=== PATIENT | male | born 1935 | race Caucasian/White ===

== ENCOUNTER 2017-04-12 09:33 | Outpatient (CLI) | payer MEDICARE ==
[~2017-04-12 09:33] MED LIST: Iopamidol 370 76% 100 ML VIAL ONE
--- NOTE | 2017-04-12 12:18 | CT ---
CT ABDOMEN AND PELVIS WITH AND WITHOUT IV CONTRAST: Date: 04/12/17 HISTORY: Metastatic renal carcinoma to the pancreas. CORRELATION: MRI abdomen of 01/11/17. FINDINGS: There are dependent changes in the left lung base. A gallstone is again seen. There has been interva l placement of a biliary stent in the common bile duct with air in the intra and extrahepatic biliar y ducts. No hepatic mass is noted. The enhancing masses in the pancreas noted on the previous study are stable, measuring 2.7 cm in the posterior aspect of the head of the pancreas, and 3.0 cm in the body-tail of the pancreas. The spleen and left adrenal gland appear normal. Multiple cysts are seen in the left kidney. The pat ient is status post right nephrectomy. No free air, free fluid, or lymphadenopathy seen in the abdomen or pelvis. The small bowel loops are not abnormally dilated. There is colonic diverticulosis without diverticulitis. There is a 3.0 cm m ass in the posterior aspect of the urinary bladder. There are vascular calcifications without evidence of aneurysmal dilatation of the abdominal aorta. Degenerative changes are present in the spine. No osteolytic lesions are seen. IMPRESSION: 1. Stable pancreatic masses since 01/11/17. 2. Cholelithiasis. 3. Left renal cysts. 4. Status post right nephrectomy. 5. Colonic diverticulosis. 6. Urinary bladder mass. Further evaluation with cystoscopy is recommended. POS: [facility]
== END 2017-04-12 09:34 | disposition home or self-care (01) ==
LOC: SCSCT 09:33
PROVIDERS: ATTEND Internal Medicine Hematology & Oncology
DX: C64.1 Malignant neoplasm of right kidney, except renal pelvis (principal); K80.20 Calculus of gallbladder without cholecystitis without obstruction; K57.30 Diverticulosis of large intestine without perforation or abscess without bleeding; N28.1 Cyst of kidney, acquired; K86.89 Other specified diseases of pancreas; Z90.5 Acquired absence of kidney
CPT/HCPCS: 74178

== ENCOUNTER 2017-07-19 10:51 | Outpatient (CLI) | payer MEDICARE ==
--- NOTE | 2017-07-19 13:44 | CT ---
CT ABDOMEN AND PELVIS WITH IV AND ORAL CONTRAST: History: Pancreatic masses. Renal cell carcinoma. Comparison: 04-12-17 FINDINGS: On the superior most image, a 0.7 cm noncalcified nodule abuts the posterior surface of the major fis sure on the right, in the right lower lobe. Gas containing stones in the gallbladder are again demonstrated. Biliary stent and pneumobilia are si milar in appearance to the prior study. The masses involving the pancreas are less conspicuous on the current study due to different timing o f IV contrast bolus. The 2.7 cm pancreatic head mass and 3.0 cm pancreatic body mass are not signific antly changed in size. Cysts arising from the cortex of the left kidney are again demonstrated the ri ght kidney is surgically absent. Diverticula arise from the colon without adjacent inflammation. Ther e is dystrophic calcification in the prostate gland. Defect at the bladder base is favored to represe nt an enlarged prostate gland. There is calcification in the arterial structures. IMPRESSION: 1. Stable CT appearance of the pancreatic masses. Post-operative changes are also stable. 2. Noncalcified right lower lobe nodule, 0.7 cm diameter, is now visualized. This area of the right l ower lobe was not included on the previous study. Please consider CT of the chest for complete evalua tion. POS: [facility]
== END 2017-07-19 10:52 | disposition home or self-care (01) ==
LOC: SCSCT 10:51
PROVIDERS: ATTEND Internal Medicine Hematology & Oncology
DX: C64.1 Malignant neoplasm of right kidney, except renal pelvis (principal); R91.1 Solitary pulmonary nodule; Z98.890 Other specified postprocedural states
CPT/HCPCS: 74178; 74410

== ENCOUNTER 2018-01-24 08:25 | Outpatient (CLI) | payer MEDICARE ==
[2018-01-24] MEDS ORDERED: Iopamidol 370 76% 100 ML VIAL ONE (09:00)
--- NOTE | 2018-01-24 13:26 | CT ---
CT OF ABDOMEN AND PELVIS WITH CONTRAST: Comparison: 07-19-17, 04-12-17 FINDINGS: Slightly hyperdense, by post contrast imaging, mass situated at the posterior aspect of the head of t he pancreas is redemonstrated approximately 2.6 cm in transverse diameter, stable. Adjacent pancreati c stent remains in place. Stent approximates the common duct with re-demonstration of pneumobilia. He terogeneous, approximately 3 cm in dimension mass, at the distal pancreatic body is grossly stable. H yperdense gallstones remains at the gallbladder neck. Right nephrectomy post-operative change is agai n demonstrated. Re-demonstration of multiple left renal cysts and small hypodensities that are too sm all to further characterize. Stable nodularity of the left adrenal gland. Scattered atelectasis and/o r scarring present at the lung bases. There is diffuse osseous degenerative change of the skeletal st ructures. No new adenopathy. There is enlargement of the prostate gland with internal calcification, abutting the base of the urinary bladder, grossly stable. Colonic diverticulosis is seen. There is no abnormal dilatation of the small bowel. Exam is otherwise grossly stable. IMPRESSION: 1. Grossly stable masses of the pancreatic head and distal body. 2. Cholelithiasis remains. POS: [facility]
== END 2018-01-24 08:26 | disposition home or self-care (01) ==
LOC: SCSCT 08:25
PROVIDERS: ATTEND Internal Medicine Hematology & Oncology
DX: K86.9 Disease of pancreas, unspecified (principal); K80.20 Calculus of gallbladder without cholecystitis without obstruction
CPT/HCPCS: 74177; 82565

== ENCOUNTER 2018-05-10 21:50 | Emergency (ER) | payer MEDICARE ==
[2018-05-10 22:35] LABS: #Basophils 0.1 thou/uL (0.0-0.2); #Eosinphils 0.1 thou/uL (0.0-0.7); #Lymphocytes 1.2 thou/uL (1.20-3.40); %Basophils 0.4 % (0.0-1.0); %Eosinophils 0.4 % (0.0-10.0); %Lymphocytes 8.8 % (21.0-51.0); %Monocytes 7.2 % (0.0-10.0); %Neutrophils 83.2 % (42.0-75.0); Hemoglobin 14.3 g/dL (14.0-18.0); Mean Corpuscular HGB CONC 32.8 g/dL (32.0-36.0); Mean Corpuscular Hemoglobin 31.4 pg (27.0-31.0); Mean Corpuscular Volume 95.7 fL (78.0-98.0); Mean Platelet Volume 6.8 fL (7.4-10.4); Platelet Count 233 thou/uL (130-400); RBC Distribution Width 12.9 % (11.5-14.5); Red Blood Cell (RBC) Count 4.57 mill/uL (4.70-6.10); White Blood Cell (WBC) Count 13.2 thou/uL (4.8-10.8)
[2018-05-10 22:54] LABS: ALT (SGPT) 247 U/L (8-55); AST (SGOT) 144 U/L (5-34); Albumin 3.8 g/dL (3.4-4.8); Alkaline Phosphatase 415 U/L (40-150); Anion Gap 11 mmol/L (10-20); BUN (Urea Nitrogen) 19 mg/dL (8.4-25.7); Bilirubin, Total 2.6 mg/dL (0.2-1.2); CK (CPK) 59 U/L (30-200); Calc. Creatinine Clearance 0 mL/min (70-130); Calcium 9.3 mg/dL (7.8-10.44); Carbon Dioxide 26 mmol/L (23-31); Chloride 105 mmol/L (98-107); Estimated GFR-MDRD 55; Globulin 2.9 g/dL (2.4-3.5); Glucose 112 mg/dL (83-110); Protein, Total 6.7 g/dL (5.8-8.1); Sodium 138 mmol/L (136-145)
[2018-05-10 22:57] LABS: CKMB 1.6 ng/mL (0-6.6); Troponin I Less than 0.010 ng/mL (< 0.028)
[2018-05-10 23:08] LABS: Bilirubin Small (Negative); Blood, Urine Negative (Negative); Clarity CLEAR (Clear); Glucose, Urine (Dipstick) Negative (Negative); Leukocyte Small (Negative); Nitrite Negative (Negative); Protein, Urine (Dipstick) 30 mg/dL (Neg-Trace); Specific Gravity, Urine 1.017 (1.002-1.036)
[2018-05-10 23:10] LABS: Bacteria/HPF None Seen HPF (None Seen); Hyaline Casts/LPF 0-3 HYALINE CAST LPF (0-3 Hyaline); RBC/HPF 0-3 HPF (0-3); Squamous Epithelial None Seen HPF (0-3); WBC/HPF 0-3 HPF (0-3)
== END 2018-05-10 23:52 | disposition home or self-care (01) ==
LOC: ERS 21:50
DX: E86.0 Dehydration (principal); I10 Essential (primary) hypertension; E78.5 Hyperlipidemia, unspecified; Z79.899 Other long term (current) drug therapy
CPT/HCPCS: 36415; 81003; 81015; 82550; 82553; 83605; 83880; 84484; 87040; 87086; 96360

== ENCOUNTER 2018-09-14 15:41 | Observation (INO) | payer MEDICARE ==
[~2018-09-14 15:41] MED LIST changes: +ISOVUE-370 76%-LOCM 1 ML ONE; -Iopamidol 370 76% 100 ML VIAL ONE
[2018-09-14 16:26] LABS: #Eosinphils 0.2 thou/uL (0.0-0.7); #Lymphocytes 1.3 thou/uL (1.20-3.40); #Monocytes 0.7 thou/uL (0.11-0.59); #Neutrophils 9.1 thou/uL (1.40-6.50); %Basophils 0.4 % (0.0-1.0); %Eosinophils 1.6 % (0.0-10.0); %Lymphocytes 11.7 % (21.0-51.0); %Monocytes 5.8 % (0.0-10.0); %Neutrophils 80.5 % (42.0-75.0); Hemoglobin 12.9 g/dL (14.0-18.0); Mean Corpuscular HGB CONC 32.7 g/dL (32.0-36.0); Mean Corpuscular Hemoglobin 30.7 pg (27.0-31.0); Mean Corpuscular Volume 93.9 fL (78.0-98.0); Mean Platelet Volume 7.7 fL (7.4-10.4); Platelet Count 230 thou/uL (130-400); RBC Distribution Width 13.3 % (11.5-14.5); Red Blood Cell (RBC) Count 4.21 mill/uL (4.70-6.10); White Blood Cell (WBC) Count 11.3 thou/uL (4.8-10.8)
[2018-09-14 16:44] LABS: ALT (SGPT) 141 U/L (8-55); AST (SGOT) 68 U/L (5-34); Albumin 3.3 g/dL (3.4-4.8); Alkaline Phosphatase 591 U/L (40-150); Anion Gap 14 mmol/L (10-20); BUN (Urea Nitrogen) 25 mg/dL (8.4-25.7); Bilirubin, Total 6.5 mg/dL (0.2-1.2); Calc. Creatinine Clearance 0 mL/min (70-130); Carbon Dioxide 23 mmol/L (23-31); Chloride 105 mmol/L (98-107); Estimated GFR-MDRD 62; Globulin 3.2 g/dL (2.4-3.5); Glucose 192 mg/dL (83-110); Potassium 3.6 mmol/L (3.5-5.1); Protein, Total 6.5 g/dL (5.8-8.1); Sodium 138 mmol/L (136-145)
[2018-09-14] MEDS ORDERED: Ondansetron PF 4 MG/2 ML Vial ONE (16:50)
[2018-09-14 18:32] LABS: Bilirubin, Direct 5.2 mg/dL (0.1-0.3); Bilirubin, Total 6.7 mg/dL (0.2-1.2)
--- NOTE | 2018-09-14 19:14 | CT ---
CT ABDOMEN AND PELVIS WITH IV CONTRAST 09/14/18 HISTORY: Abdominal pain. Pancreatic cancer. Elevated bilirubin. COMPARISON: 08/14/18. FINDINGS: The visualized lung bases are clear. Gallstone is again demonstrated. Gallbladder is more distended, as are the biliary ducts and common bile duct which now measures up to 2.0 cm diameter just above the level of the stent that is unchanged in position, the lower margin extending to the level of the amp jonathon of Vater. Hyperdense masses of the pancreas are unchanged in appearance. Right kidney is surgica lly absent. Left renal cysts are unchanged. Calcification throughout the arterial structures. Bilater al parts defects at the lumbosacral junction are apparent. Urinary bladder is unremarkable. IMPRESSION: Biliary obstruction. Evidence of shunt malfunction. It is not clear if the shunt is obstructed or has migrated into the biliary system, so that the distal tip, at the level of ampulla of Vater, is no lo nger patent. Pancreatic masses and other findings are otherwise stable. POS: [facility]
--- NOTE | 2018-09-14 20:41 | PDOC.FM ---
- Objective Result Diagrams: 09/14/18 16:11 09/14/18 16:11
--- NOTE | 2018-09-14 20:47 | PDOC.FPRHP ---
- History of Present Illness History of Present Illness: 83yo M with pmh of Metastatic kidney cancer to the pancreas (not on chemo or radiation). Pt reports several month hx of increasing pruritis on back. His daughter noticed he was becoming jaundiced and brought him to ED at [facility]. There he had bilirubin checked which was elevated. On presentation here abdominal CT which shows CBD stent is migrated and not functioning correctly with CBD dilation to 2cm. Pt denies any abdominal pain, no fever/chills, no nausea/vomiting, no constipation/diarrhea, no upper or lower GIB. ED Course: zofran, 1L NS - Allergies/Adverse Reactions Allergies Allergy/AdvReac Type Severity Reaction Status Date / Time [id number]-Yjb-Dzk Reductase Allergy Hives Verified 02/03/17 10:47 Inhibitor - Home Medications Medication Instructions Recorded Confirmed Type Aspirin [Aspir-Low] 81 mg PO DAILY 02/03/17 09/14/18 History NIFEdipine [Nifedipine ER] 30 mg PO BID 02/03/17 09/14/18 History Acetaminophen [Tylenol Arthritis] 650 mg PO DAILY MDD ARTHRITIS PAIN 09/14/18 History - History PMHx: Metastatic kidney cancer to the pancreas, HTN, BPH, OA, CAD s/p stents and CABG PSHx: nephrectomy, CABG FHx: none Social: denies t/a/d allergy: statins- anaphylaxis CODE: full - Review of Systems General: reports: other (itching). denies: fever/chills, fatigue Eyes: denies: eye pain, vision changes ENT: denies: nasal congestion, rhinorrhea Respiratory: denies: cough, congestion, shortness of breath Cardiovascular: denies: chest pain, palpitation Gastrointestinal: denies: nausea, vomiting Skin: reports: jaundice, itching. denies: rashes Musculoskeletal: denies: pain, tenderness Neurological: denies: syncope, seizure Psychological: denies: anxiety, depression - Vital signs BP: 136/77, Pulse: 76, Resp: 18, Temp: 98.0 (Oral), Pain: 0, O2 sat: 97 on Room Air, Time: 09/14/2018 19:04. weight 83kg - Physical Exam Constitutional: NAD, awake, alert and oriented HEENT: EOMI, grossly normal vision, grossly normal hearing Neck: supple, trachea midline Chest: no-tender to palpation, no lesions Heart: RRR, normal S1/S2 Lungs: CTAB, no respiratory distress Abdomen: soft, non-tender Musculoskeletal: normal structure, normal tone Neurological: no focal deficit, normal sensation Skin: no rash/lesions, good turgor Heme/Lymphatic: no unusual bruising or bleeding, no purpura Psychiatric: normal mood and affect, intact recent and remote memory FMR H&P: Results - Labs Result Diagrams: 09/14/18 16:11 09/14/18 16:11 Lab results: WBC 11.3 thou/uL (4.8-10.8) H 09/14/18 16:11 Hgb 12.9 g/dL (14.0-18.0) L 09/14/18 16:11 Hct 39.6 % (42.0-52.0) L 09/14/18 16:11 MCV 93.9 fL (78.0-98.0) 09/14/18 16:11 Plt Count 230 thou/uL (130-400) 09/14/18 16:11 Neutrophils % 80.5 % (42.0-75.0) H 09/14/18 16:11 Sodium 138 mmol/L (136-145) 09/14/18 16:11 Potassium 3.6 mmol/L (3.5-5.1) 09/14/18 16:11 Chloride 105 mmol/L (98-107) 09/14/18 16:11 Carbon Dioxide 23 mmol/L (23-31) 09/14/18 16:11 BUN 25 mg/dL (8.4-25.7) 09/14/18 16:11 Creatinine 1.13 mg/dL (0.7-1.3) 09/14/18 16:11 Glucose 192 mg/dL (83-110) H 09/14/18 16:11 Calcium 9.0 mg/dL (7.8-10.44) 09/14/18 16:11 Total Bilirubin 6.7 mg/dL (0.2-1.2) H 09/14/18 16:11 AST 68 U/L (5-34) H 09/14/18 16:11 ALT 141 U/L (8-55) H 09/14/18 16:11 Alkaline Phosphatase 591 U/L (40-150) H 09/14/18 16:11 Serum Total Protein 6.5 g/dL (5.8-8.1) 09/14/18 16:11 Albumin 3.3 g/dL (3.4-4.8) L 09/14/18 16:11 Lipase 25 U/L (8-78) 09/14/18 16:11 FMR H&P: A/P - Problem List (1) Hyperbilirubinemia Current Visit: Yes Status: Acute Code(s): E80.6 - OTHER DISORDERS OF BILIRUBIN METABOLISM (2) Renal cancer Current Visit: Yes Status: Acute (3) BPH (benign prostatic hyperplasia) Current Visit: Yes Status: Acute Code(s): N40.0 - BENIGN PROSTATIC HYPERPLASIA WITHOUT LOWER URINRY TRACT SYMP (4) HTN (hypertension) Current Visit: Yes Status: Acute Code(s): I10 - ESSENTIAL (PRIMARY) HYPERTENSION (5) CAD (coronary artery disease) Current Visit: Yes Status: Acute Code(s): I25.10 - ATHSCL HEART DISEASE OF [place] CORONARY ARTERY W/O ANG PCTRS - Plan Hyperbilirubinemia 2/2 CBD obstruction from pancreatic mass A- CT imaging shows evidence for migration of CBD stent with probable dysfunction. GI consulted from ER with recommendations for admission- recommendations much appreciated. No s/s of cholangitis or cholecystitis P- admit to medicine - f/u GI recs in morning - NPO after midnight for probable procedure in AM HTN - continue home nifedipine BPH - continue home tamsulosin CAD - pt denies being on any medications but is questionable historian. Confirm home meds with family in AM recommended. CODE: FULL FMR H&P: Upper Level - Pertinent history Jhony Salinas is a 83 year old male with history of metastatic renal cell carcinomal who presented to the ED with worsening pruritus and jaundice. GI was consulted from ED who recommended admission for stent revision. Pt otherwise asymptomatic, denies fever, abdominal pain, nausea, vomiting. - Pertinent findings Vitals wnl. Exam: General: alert and oriented x 3 in no distress. Heart: Regular rate and rhythm, no murmurs, rubs, or gallops. Lungs: clear to auscultation bilaterally. Abdomen: soft, non-tender; no distention or organomegaly/masses felt on palpation. Skin: jaundice noted. CT: significant for stent malfunction. - Plan Date/Time: 09/14/182043 I, Frances Howard, have evaluated this patient and agree with findings/plan as outlined by international freight forwarder resident. Pertinent changes/additions are listed here. Hyperbilirubinemia secondary - will admit to medical obs - no s/s of cholangitis - will admit for likely procedure in AM per GI recs. Regarding pt's chronic medical problems, will resume home medications as described above. diet: NPO after midnight. DVT proph: lovenox. Addendum - Attending - Attending Attestation Date/Time: 09/14/182343 I personally evaluated the patient and discussed the management with Dr. Mckenzie /Lee. I agree with the History, Examination, Assessment and Plan documented above with any addition or exceptions noted below. Patient with history of RCC with mets to pancreas here with pruritus and increased jaundice. He otherwise denies symptoms. Labs show transaminitis and TBili to >6. CT scan shows failure of the common bile duct stent that is likely leading to his increased Tbili level and subsequent itching. He will be admitted overnight, consult GI in AM to evaluate for other therapies such as ERCP or percutaneous drainage. Continue chronic home meds overnight. Dispo pending GI recs and interventions.
[2018-09-14] MEDS ORDERED: Acetaminophen 325 MG TAB PO PRN ×2 (22:07→22:40)
[2018-09-14] MEDS ORDERED: Ondansetron ODT 4 MG TAB SL PRN (22:07)
[2018-09-14] MEDS ORDERED: Ondansetron PF 4 MG/2 ML Vial IVP PRN ×2 (22:07→22:40)
[2018-09-14] MEDS ORDERED: Sodium Chloride 0.9% 1,000 ML IV SCH (22:15)
[2018-09-14 22:16] VITALS: BMI 29.7
[2018-09-14] MEDS ORDERED: Ondansetron ODT 4 MG TAB PO PRN (22:40)
[2018-09-14] MEDS ORDERED: Calcium Carbonate 500 MG ChewTAB PO PRN (22:40)
[2018-09-14] MEDS: hydrOXYzine 10 MG TAB PO PRN (23:01)
--- NOTE | 2018-09-15 08:08 | PDOC.FM ---
- Subjective Subjective: Pt states that he slept some over night but continues to itch. He denies chest pain, SOB, abdominal pain, nausea, vomiting, or diarrhea. He states he has had an ERCP before and just hopes they put in a bigger stent. - Objective MAR Reviewed: Yes Vital Signs & Weight: Vital Signs (12 hours) Temp Pulse Resp BP Pulse Ox 09/15/18 07:40 98.6 F 84 14 174/84 H 95 09/15/18 03:48 98.5 F 84 20 172/88 H 96 09/14/18 23:09 98.9 F 78 21 H 134/72 94 L 09/14/18 22:00 97.5 F L 79 28 H 159/76 H 97 Weight Weight 83.506 kg I&O: 09/14/18 09/15/18 09/16/18 06:59 06:59 06:59 Intake Total 1354 Output Total 875 Balance 479 Result Diagrams: 09/15/18 08:30 09/15/18 08:30 Phys Exam - Physical Examination Constitutional: NAD HEENT: moist MMs Neck: supple, full ROM Respiratory: no wheezing, no rales, clear to auscultation bilateral Cardiovascular: RRR, no significant murmur Gastrointestinal: soft, non-tender, no distention, positive bowel sounds Musculoskeletal: pulses present, edema present (1+ pitting edema to knee) Neurological: normal sensation, moves all 4 limbs Psychiatric: normal affect, A&O x 3 Skin: cap refill <2 seconds Deviation from normal: Evident jaundice, more pronounced in natural light Dx/Plan (1) BPH (benign prostatic hyperplasia) Code(s): N40.0 - BENIGN PROSTATIC HYPERPLASIA WITHOUT LOWER URINRY TRACT SYMP Status: Acute (2) CAD (coronary artery disease) Code(s): I25.10 - ATHSCL HEART DISEASE OF [place] CORONARY ARTERY W/O ANG PCTRS Status: Acute (3) HTN (hypertension) Code(s): I10 - ESSENTIAL (PRIMARY) HYPERTENSION Status: Acute (4) Hyperbilirubinemia Code(s): E80.6 - OTHER DISORDERS OF BILIRUBIN METABOLISM Status: Acute (5) Renal cancer Status: Acute - Plan Plan: This is an 83 yo male with a pmh of metastatic renal cell carcinoma, HTN, BPH, CAD Hyperbilirubinemia 2/2 CBD obstruction from pancreatic mass -CT shows migration of stent and CBD dilation of 2cm -Dr. Walker consulted, likely ERCP this morning for stent placement -NPO for above -Pt likely discharged following procedure HTN -Continue home meds BPH -Continue home meds CAD w/ hx of triple bypass -Denies current medications -Likely has some degree of heart failure Addendum - Attending - Attending Attestation Date/Time: 09/15/18 [id number] I personally evaluated the patient and discussed the management with Dr. Pierre I agree with the History, Examination, Assessment and Plan documented above with any addition or exceptions noted below. Discussed care plan with patient and Daughter patient followed per Oncology ( Tho) and GI(Delmar) will consult GI for further rec regard CBD obstructiive jaundice consider prophylatic ABX if felt needed per GI. Atarax for pruritis verse colestid etc
[2018-09-15 08:54] LABS: #Eosinphils 0.4 thou/uL (0.0-0.7); #Lymphocytes 1.2 thou/uL (1.20-3.40); #Monocytes 0.8 thou/uL (0.11-0.59); #Neutrophils 8.9 thou/uL (1.40-6.50); %Basophils 0.4 % (0.0-1.0); %Eosinophils 3.4 % (0.0-10.0); %Lymphocytes 10.6 % (21.0-51.0); %Monocytes 7.1 % (0.0-10.0); %Neutrophils 78.5 % (42.0-75.0); Hemoglobin 12.9 g/dL (14.0-18.0); Mean Corpuscular HGB CONC 32.2 g/dL (32.0-36.0); Mean Corpuscular Hemoglobin 30.4 pg (27.0-31.0); Mean Corpuscular Volume 94.5 fL (78.0-98.0); Mean Platelet Volume 7.7 fL (7.4-10.4); Platelet Count 222 thou/uL (130-400); RBC Distribution Width 13.4 % (11.5-14.5); Red Blood Cell (RBC) Count 4.25 mill/uL (4.70-6.10); White Blood Cell (WBC) Count 11.4 thou/uL (4.8-10.8)
[2018-09-15] MEDS ORDERED: Enoxaparin Sodium 40 MG/0.4 ML SYRINGE SC SCH (09:00)
[2018-09-15 09:18] LABS: ALT (SGPT) 118 U/L (8-55); AST (SGOT) 57 U/L (5-34); Albumin 3.2 g/dL (3.4-4.8); Alkaline Phosphatase 560 U/L (40-150); Anion Gap 12 mmol/L (10-20); BUN (Urea Nitrogen) 15 mg/dL (8.4-25.7); Calc. Creatinine Clearance 75 mL/min (70-130); Calcium 8.4 mg/dL (7.8-10.44); Carbon Dioxide 23 mmol/L (23-31); Chloride 108 mmol/L (98-107); Estimated GFR-MDRD 84; Glucose 87 mg/dL (83-110); Potassium 3.8 mmol/L (3.5-5.1); Protein, Total 6.2 g/dL (5.8-8.1); Sodium 139 mmol/L (136-145)
[2018-09-15] MEDS: hydrOXYzine 10 MG TAB PO PRN (09:34)
[2018-09-15] MEDS: Tamsulosin HCl 0.4 MG CAP PO SCH (09:34)
[2018-09-15] MEDS: NIFEdipine XL 60 MG TAB PO SCH ×2 (09:35→21:24)
[2018-09-15] MEDS ORDERED: Dexamethasone 20 MG/5 ML VIAL ONE (10:13)
[2018-09-15] MEDS ORDERED: ePHEDrine 50 MG/ML VIAL ONE (10:13)
[2018-09-15] MEDS ORDERED: PHENYLEPHRINE-NS 100 MCG/ML 10 ML SYRINGE ONE (10:13)
[2018-09-15] MEDS ORDERED: Glycopyrrolate 0.2 MG/ML 5 ML SYRINGE ONE (10:13)
[2018-09-15] MEDS ORDERED: PROPOFOL 200 MG/20 ML VIAL ONE (10:13)
[2018-09-15] MEDS ORDERED: Rocuronium Bromide 10 MG/ML (10ML VIAL) ONE (10:13)
[2018-09-15] MEDS ORDERED: Ondansetron PF 4 MG/2 ML Vial ONE (10:13)
[2018-09-15] MEDS ORDERED: Indomethacin 50 MG SUPP PR ONE (11:00)
[2018-09-15] MEDS ORDERED: Indomethacin 50 MG SUPP ONE (12:36)
[2018-09-15] MEDS ORDERED: Iothalamate Meglumine 60% 50 ML VIAL FS ONE (12:36)
[2018-09-15] MEDS ORDERED: Fentanyl 100 MCG/2 ML VIAL ONE (12:50)
--- NOTE | 2018-09-15 14:17 | CON ---
DATE OF CONSULTATION: 09/15/2018 REASON FOR CONSULTATION: Biliary obstruction. CONSULTING PHYSICIAN: Dr. Aleksandr Bowling. HISTORY OF PRESENT ILLNESS: The patient is an 83-year-old male with past medical history of hypertension, BPH, osteoarthritis, coronary artery disease, status post percutaneous coronary intervention stent placement and coronary artery bypass graft as well as renal cell carcinoma with metastatic disease to the pancreas requiring the placement of biliary stent in 2017 secondary to obstruction, presenting with complaints of pruritus. Per chart review, the patient has a history of renal cell carcinoma with metastatic disease in the pancreas that ultimately ended in obstruction of the biliary tree that was relieved with placing a 10 mm x 6 cm Wallstent within the biliary system in order to relieve the obstruction in January of 2017. He states that he did well over the next 3 to 6 months; however, over the last 6 to 12 months, he began to experience intermittent episodes of systemic itching, located primarily on his torso/trunk and lower abdomen, but occasionally on the upper and lower extremities. This would occur approximately 1 to 2 times or every 1 to 2 weeks; however, this has progressively been getting worse over the last 6 months and has progressed to the point, where he is now having daily symptoms of itching within the last month itself. This is characterized like again primarily as intense itching on his chest, back, and abdomen with some milder symptoms in the upper and lower extremities. With this increased itching, he was noted to have the appearance of jaundice, which was discovered by the patient's daughter (not described by the patient himself), but otherwise has no other complaints. He currently denies any nausea, vomiting, fevers, chills, abdominal pain, GI bleeding, change in his bowel habits, dysphagia, odynophagia, or weight loss with admission to the [facility] ER for further evaluation of this itching and jaundice. He was noted to have an obstructive type pattern on his LFTs and was admitted for further evaluation. REVIEW OF SYSTEMS: A 10-category review of systems was obtained with all responses negative except for the pertinent positives as listed in HPI. PAST MEDICAL HISTORY: As per HPI. PAST SURGICAL HISTORY: Nephrectomy and CABG. FAMILY HISTORY: Denies any GI malignancies. SOCIAL HISTORY: Denies any tobacco, alcohol, or illicit drug use. OUTPATIENT MEDICATIONS: Reviewed. ALLERGIES: STATINS. PHYSICAL EXAMINATION: VITAL SIGNS: Temperature 98.6, pulse 84, blood pressure 174/84, respiratory rate 14, and saturating 95% on room air. GENERAL: The patient was sitting at bedside, in no acute distress. Alert and oriented x4. HEENT: Normocephalic and atraumatic. No JVD noted but scleral icterus positive. CARDIOVASCULAR: Regular rate and rhythm. No discernible murmurs, gallops, or rubs. RESPIRATORY: Clear to auscultation bilaterally with no discernible wheezes or rales. ABDOMEN: Normoactive bowel sounds. Soft, nontender, and nondistended. EXTREMITIES: No cyanosis, clubbing, or edema. LABORATORY DATA: CBC with white blood cell count of 11.3, hemoglobin 12.9, hematocrit 39.6, and platelets 230. Chemistry with a sodium of 138, potassium 3.6, chloride 105, CO2 of 23, BUN 25, creatinine 1.13, glucose 192, AST 68, ALT 141, alkaline phosphatase 591, total bilirubin 6.7. IMAGING DATA: CT of the abdomen and pelvis was obtained on September 14, 2018, which showed biliary obstruction with possible shunt malfunction, but it was unclear if the shunt was obstructed or has migrated into the biliary system with the distal tip at the level of the ampulla of Vater. The pancreatic masses were also noted but were otherwise stable in character/appearance. ASSESSMENT AND PLAN: The patient is an 83-year-old male with past medical history of hypertension, benign prostatic hyperplasia, osteoarthritis, coronary artery disease, status post coronary artery bypass graft, and renal cell carcinoma with metastatic disease to the pancreas requiring a biliary stent due to obstruction in the past, now presenting with biliary obstruction secondary to stent failure. Biliary obstruction: The patient is presenting with a history of renal cell carcinoma with metastatic disease to the pancreas that had required the placement of a biliary stent to maintain patency of the biliary system in 2017. At that time, a 10 mm x 6 cm Wallstent was placed with symptomatic relief in the postoperative period; however, over the last 6 to 12 months, he has been having increasing intermittent episodes of pruritus that have progressively worsened over the last month and is now occurring daily. Upon evaluation of his labs and imaging, it does not appear that the stent is either occluded due to lithogenic material has possibly migrated into the biliary tree or the masses have grown to the point to either grow into the stent or grow around the stent thereby obstructing it. RECOMMENDATIONS: 1. Would continue n.p.o. status in anticipation for endoscopic retrograde cholangiopancreatography. 2. We will perform an endoscopic retrograde cholangiopancreatography today for further evaluation of the stent itself and possible intervention to reestablish patency of the biliary tree. 3. Would place the patient on Zosyn as antibiotic prophylaxis. 4. Further recommendations to follow procedure. Job ID: [id number]
--- NOTE | 2018-09-15 14:19 | RAD ---
FERCP: 09/15/2018 COMPARISON: None HISTORY: Right upper quadrant pain FINDINGS: 4 images from an ERCP provided. Images demonstrate contrast media within the common bile du ct. A metallic stent is seen within the common bile duct with probable moderate intra-stent stenosis. Postoperative clips are noted medial to the CBD and there is a wire traversing the stent on the firs t 2 provided images. Next 2 images demonstrate a new common duct stent within the pre-existing metall ic CBD stent. IMPRESSION: Stent placement within the CBD. There are findings suggesting nonspecific intra-stent mike nosis with proximal dilation of the common bile duct.
[2018-09-15] MEDS: Piperacillin/Tazobactam 3.375 GM in Sodium Chloride 0.9% 100 ML IVPB SCH ×2 (15:21→17:03)
--- NOTE | 2018-09-15 21:41 | OP ---
DATE OF PROCEDURE: 09/15/2018 PROCEDURES PERFORMED: Endoscopic retrograde cholangiopancreatography with stent placement and balloon extraction. INDICATION FOR PROCEDURE: Biliary obstruction. DESCRIPTION OF PROCEDURE: After the risks and benefits of the procedure were explained to the patient including risks of bleeding, infection, perforation, reactions to anesthesia, aspiration, pancreatitis, and/or pain, informed consent was obtained. The patient was then taken to the endoscopy suite, where general anesthesia was administered via Anesthesia support with endotracheal tube intubation. Once the patient was intubated and sedated, he was maneuvered into the supine position in preparation for the procedure. Using the standard duodenoscope, it was advanced into the esophagus, stomach, and the proximal small intestine with the findings listed below. The patient tolerated the procedure well with no immediate perioperative complications. Upon completion of the procedure, all equipment was removed from the patient and he was transferred to PACU in satisfactory condition. EGD FINDINGS: Limited views were obtained of the upper GI tract on the EGD portion of the exam. Based on this examination, normal-appearing mucosa was seen in both the esophagus and the stomach. However, upon entry into the proximal small intestines, the ampulla was easily identified with a metal biliary stent seen extruding from the ampulla, but buried underneath an increased amount of polypoid tissue creating a functional obstruction of the biliary stent outflow. Only the superior aspect of the stent was able to be visualized during this examination with the inferior portion buried in the common bile duct. No biliary drainage was seen on initial examination. However, there was no evidence of erosions, ulcerations, or active/recent bleeding. ERCP FINDINGS: With the evaluation of the ampulla and growth of tumor around the distal end of the biliary stent, a guidewire was placed into the existing biliary stent and advanced into the intrahepatic biliary tree using a sphincterotome to adequately achieve position. Once adequate position was achieved with a guidewire, the sphincterotome was then removed using the exchange technique and substituted for a biliary balloon catheter. Once the 9 to 12 mm biliary balloon catheter was advanced into place, it was inflated to 9 mm in size with successive sweeps of the existing biliary stent yielding a large amount of sludge like stone debris as well as approximately two 4 to 5 mm stones. This was successfully performed until no further stone debris was extracted. However, upon attempting to inflate the balloon to 9 mm in the proximal portion of the existing metal stent, I was then able to withdraw the balloon due to ingrowth of tumor/tissue. Occlusion cholangiogram in the distal portion of the biliary stent yielded a patent distal portion of the stent, but a waist/stenosis noted in the proximal portion of the biliary stent, again denoting either tissue ingrowth versus tumor ingrowth. Given above the stent, the common hepatic duct was dilated to approximately 1.5 to 2 cm in size. At that point, given the tumor ingrowth within the proximal portion of the biliary stent and the tumor progression creating a functional outlet obstruction, a 11.5-[place] x 9-cm plastic stent was placed within the middle stent to bridge the area of stenosis as well as bridge the area of tumor proliferation at the distal end of the existing metal stent. This was successfully placed using a push technique with good biliary drainage noted at the end of the procedure. Images were captured of all phases of the ERCP portion of this exam, at which point, upon conclusion of the procedure, all equipment was removed from the patient and the patient was transferred to PACU. IMPRESSION: 1. Tumor occlusion of the ampulla and distal end of the biliary stent. 2. Large amount of stone debris and two 4 to 5 mm stones seen in the common bile duct, status post successful extraction with successive balloon sweeps. 3. Dilation of the common hepatic duct to 1.5 to 2 cm secondary to distal occlusion. 4. Successful placement of a 11.5-[place] x 9-cm plastic stent. RECOMMENDATIONS: 1. Would continue to trend LFTs daily to monitor response to treatment. 2. Would confer with the Oncology Service about further treatment of his metastatic renal cell carcinoma, given the tumor extension into the ampulla as well as the proximal end of the biliary stent. 3. I will confer with Dr. Jacobsen about placement of an additional metal stent in order to bridge the stenosis as well as the tumor proliferation at the ampulla. 4. Will monitor for signs of post ERCP pancreatitis. We will continue to follow. Please call with any questions. Job ID: [id number]
[2018-09-16] MEDS: Piperacillin/Tazobactam 3.375 GM in Sodium Chloride 0.9% 100 ML IVPB SCH ×2 (00:20→05:33)
[2018-09-16 05:06] LABS: #Lymphocytes 0.8 thou/uL (1.20-3.40); #Monocytes 0.4 thou/uL (0.11-0.59); #Neutrophils 8.9 thou/uL (1.40-6.50); %Basophils 0.1 % (0.0-1.0); %Eosinophils 0.1 % (0.0-10.0); %Lymphocytes 7.7 % (21.0-51.0); %Monocytes 4.2 % (0.0-10.0); %Neutrophils 87.9 % (42.0-75.0); Hemoglobin 12.2 g/dL (14.0-18.0); Mean Corpuscular HGB CONC 32.3 g/dL (32.0-36.0); Mean Corpuscular Hemoglobin 31.2 pg (27.0-31.0); Mean Corpuscular Volume 96.6 fL (78.0-98.0); Mean Platelet Volume 7.7 fL (7.4-10.4); Platelet Count 197 thou/uL (130-400); RBC Distribution Width 13.1 % (11.5-14.5); Red Blood Cell (RBC) Count 3.92 mill/uL (4.70-6.10); White Blood Cell (WBC) Count 10.1 thou/uL (4.8-10.8)
[2018-09-16 05:33] LABS: ALT (SGPT) 91 U/L (8-55); AST (SGOT) 31 U/L (5-34); Alkaline Phosphatase 482 U/L (40-150); Anion Gap 11 mmol/L (10-20); BUN (Urea Nitrogen) 15 mg/dL (8.4-25.7); Bilirubin, Total 3.3 mg/dL (0.2-1.2); Calc. Creatinine Clearance 63 mL/min (70-130); Calcium 8.3 mg/dL (7.8-10.44); Carbon Dioxide 22 mmol/L (23-31); Chloride 108 mmol/L (98-107); Estimated GFR-MDRD 70; Globulin 2.8 g/dL (2.4-3.5); Glucose 185 mg/dL (83-110); Lipase 6 U/L (8-78); Potassium 4.3 mmol/L (3.5-5.1); Protein, Total 5.8 g/dL (5.8-8.1); Sodium 137 mmol/L (136-145)
--- NOTE | 2018-09-16 07:19 | PDOC.FM ---
- Subjective Subjective: Pt's itching is improved. He denies chest pain, SOB, or abdominal pain. He tolerated clear liquid last night. - Objective MAR Reviewed: Yes Vital Signs & Weight: Vital Signs (12 hours) Temp Pulse Resp BP BP Pulse Ox 09/16/18 04:24 97.9 F 71 20 117/57 L 94 L 09/15/18 23:20 97.6 F 85 16 112/69 93 L 09/15/18 21:24 93 119/65 09/15/18 19:28 97.5 F L 93 20 119/65 96 Weight Weight 82.372 kg I&O: 09/15/18 09/16/18 09/17/18 06:59 06:59 06:59 Intake Total 1354 2050 Output Total 875 650 Balance 479 1400 Result Diagrams: 09/16/18 04:25 09/16/18 04:25 Phys Exam - Physical Examination Constitutional: NAD HEENT: moist MMs Neck: full ROM Respiratory: no wheezing, no rales, clear to auscultation bilateral Cardiovascular: RRR, no significant murmur Gastrointestinal: soft, non-tender, no distention, positive bowel sounds Musculoskeletal: pulses present Neurological: normal sensation, moves all 4 limbs Psychiatric: normal affect, A&O x 3 Skin: cap refill <2 seconds Dx/Plan (1) BPH (benign prostatic hyperplasia) Code(s): N40.0 - BENIGN PROSTATIC HYPERPLASIA WITHOUT LOWER URINRY TRACT SYMP Status: Acute (2) CAD (coronary artery disease) Code(s): I25.10 - ATHSCL HEART DISEASE OF [place] CORONARY ARTERY W/O ANG PCTRS Status: Acute (3) HTN (hypertension) Code(s): I10 - ESSENTIAL (PRIMARY) HYPERTENSION Status: Acute (4) Hyperbilirubinemia Code(s): E80.6 - OTHER DISORDERS OF BILIRUBIN METABOLISM Status: Acute (5) Renal cancer Status: Acute - Plan Plan: This is an 83 yo male with a pmh of metastatic renal cell carcinoma, HTN, BPH, CAD Hyperbilirubinemia 2/2 CBD obstruction from pancreatic mass -CT shows migration of stent and CBD dilation of 2cm -Dr. Walker consulted, we will appreciate his recommendations -POD 1 ERCP with stent placement and stone removal -Bili, LFTs, and alk phos trending down -Plan to repeat LFTs this evening and possible discharge if improving -Clear liquids, likely advance HTN -Continue home meds BPH -Continue home meds CAD w/ hx of triple bypass -Denies current medications -Likely has some degree of heart failure Addendum - Attending - Attending Attestation Date/Time: 09/16/18 1126 I personally evaluated the patient and discussed the management with Dr. Pierre I agree with the History, Examination, Assessment and Plan documented above with any addition or exceptions noted below. Pruritis improved will advance diet abdomen benign LFTs marked improvement appreciate GI rec and patient will f/u with Oncology Tuesday as scheduled and G.I. Dr Jacobsen as Outpt home later today if tolerating po and continue stable.
[2018-09-16 08:12] VITALS: TEMP 97.5
[2018-09-16] MEDS: Tamsulosin HCl 0.4 MG CAP PO SCH (08:52)
[2018-09-16] MEDS: NIFEdipine XL 60 MG TAB PO SCH (08:56)
[2018-09-16 12:15] VITALS: BP 119/66
--- NOTE | 2018-09-16 14:34 | PRG ---
DATE OF SERVICE: 09/16/2018 REASON FOR CONSULTATION: Biliary obstruction. SUBJECTIVE: The patient states that he is feeling much better this morning with much less itching when compared to previous. He never did have any abdominal pain, so there was never any issue with this particular symptom. Currently, he denies any nausea, vomiting, fevers, chills, abdominal pain, GI bleeding, or new car get ready mechanic colored stools. OBJECTIVE: VITAL SIGNS: Temperature 97.5, pulse 66, blood pressure 119/66, respiratory rate 18, saturating 96% on room air. GENERAL: The patient is lying in bed, in no acute distress. Alert and oriented x4. CARDIOVASCULAR: Regular rate and rhythm. RESPIRATORY: Clear to auscultation bilaterally. ABDOMEN: Normoactive bowel sounds. Soft, nontender, nondistended. EXTREMITIES: No cyanosis, clubbing, or edema. LABORATORY DATA: CBC with a white blood cell count of 10.1, hemoglobin 12.2, hematocrit 37.9, platelets 197. Chemistry with a sodium of 137, potassium 4.3, chloride 108, CO2 of 22, BUN 15, creatinine 1.01, glucose 185. AST 31, ALT 91, alkaline phosphatase 482, total bilirubin 3.3. IMAGING DATA: The patient underwent ERCP on September 15, 2018, with findings including the overgrowth of polypoid tumor/tumor tissue in the second portion of the duodenum that is now overgrowing the stent and the ampulla of Vater, essentially creating a biliary outlet obstruction. This was able to be cannulated with balloon sweeps of the existing metal stent yielding a significant amount of stone debris and actually 2 yellow stones. A 9 cm x 11.5-[place] plastic stent was placed in the existing metal stent with good drainage achieved at the end of the study. Occlusion cholangiogram obtained during the study did show some narrowing of the proximal and of the metal stent, which is concerning for either tumor ingrowth or stenosis of the stent itself. 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 Biliary obstruction. The patient is presenting with a history renal cell carcinoma with metastatic disease to the pancreas that required the placement of a biliary stent in 2017. Over the last 6 to 12 months, he had been exhibiting increased itching and more recently jaundice of the skin. He subsequently underwent ERCP on September 15, 2018, which showed tumor ingrowth within the proximal portion of the existing metal stent as well as tumor overgrowing the distal end of the stent and essentially creating a biliary obstruction. This was swept with balloon with a significant amount of stone debris and stones removed, and a plastic stent was placed to maintain patency with good drainage seen at the end of the procedure. Currently, the patient is doing well with no evidence of post ERCP pancreatitis and his labs are downtrending indicating good drainage of the biliary tree. RECOMMENDATIONS: 1. Would have the patient follow up with the Oncology Service as an outpatient for further treatment related to metastatic renal cell carcinoma. 2. Would have the patient follow up in the GI Clinic within the next 2 to 3 weeks for followup regarding the plastic stent and the timing associated with its removal. 3. Can advance the patient's diet as tolerated and if tolerating a more regular diet, could be discharged from a GI standpoint. We will sign off at this time. Please call with any questions. Job ID: [id number]
[2018-09-16 15:33] LABS: ALT (SGPT) 84 U/L (8-55); AST (SGOT) 30 U/L (5-34); Albumin 3.1 g/dL (3.4-4.8); Alkaline Phosphatase 453 U/L (40-150); Anion Gap 10 mmol/L (10-20); BUN (Urea Nitrogen) 17 mg/dL (8.4-25.7); Calc. Creatinine Clearance 62 mL/min (70-130); Calcium 8.5 mg/dL (7.8-10.44); Carbon Dioxide 26 mmol/L (23-31); Chloride 107 mmol/L (98-107); Estimated GFR-MDRD 68; Globulin 2.9 g/dL (2.4-3.5); Glucose 99 mg/dL (83-110); Sodium 139 mmol/L (136-145)
--- NOTE | 2018-09-18 01:00 | DIS ---
DATE OF ADMISSION: 09/14/2018 DATE OF DISCHARGE: 09/16/2018 ADMITTING ATTENDING: Christian Stevens MD. DISCHARGE ATTENDING: Erwin Brunner MD. RESIDENT: Nicola Pierre DO. CONSULTS: Dr. Tamir Walker, GI. PROCEDURES: ERCP showing tumor occlusion of the ampulla and distal end of the biliary stent, large amounts of black stone debris, and 4-5 mm stone seen in the common bile duct, status post successful extraction with successive balloon sweeps, dilation of the common bile duct to 1.5 to 2 cm secondary to distal occlusion, successful placement of 11.5-[place]ian x [address] of abdomen and pelvis with contrast showing pancreatic mass and other findings including common bile duct was dilated to 2.0, biliary extraction as above, evidence of shunt malformation, and possible migration of biliary shunt. PRIMARY DIAGNOSES: Choledocholithiasis secondary possibly to renal cell carcinoma metastasis to the pancreas with obstruction of the common bile duct, jaundice, hyperbilirubinemia secondary to above, transaminitis secondary to above. SECONDARY DIAGNOSES: Hypertension, BPH, coronary artery disease. DISCHARGE MEDICATIONS: 1. Hydroxyzine 25 mg p.o. q.8 hours p.r.n. itching. 2. Tylenol 650 mg p.o. daily. 3. . 4. Nifedipine 60 mg p.o. b.i.d. 5. Tamsulosin 0.4 mg p.o. daily. DISCONTINUED MEDICATIONS: None. BRIEF HISTORY OF PRESENT ILLNESS/HOSPITAL COURSE: This is an 83-year-old male with past medical history of metastatic kidney cancer, metastasis to the pancreas with no chemo or radiation, stable with CT surveillance. Reports increasing pruritus as well as jaundice. On admission, the patient was found to have elevated bilirubin high at 6.7. AST and ALT as high as 68 and 141 respectively. Alkaline phosphatase was 591. GFR was 62 on admission. Otherwise, electrolytes were stable. The patient had a white count of 11.3, otherwise grossly normal CBC. The patient was admitted and underwent ERCP as above with stent placement and much relief. Bilirubin trended down to 3.0 at the time of discharge. AST, ALT, alkaline phosphatase trended down as well. DISPOSITION: Stable. DISCHARGE INSTRUCTIONS: 1. Location: Home. 2. Diet, low fat, heart healthy. 3. Activity: As tolerated. 4. Follow up with Dr. Jacobsen in 1-2 weeks, Dr. Gorman in 1 to 2 weeks, Dr. Medina, Oncology on 09/18/2018. Job ID: [id number]
== END 2018-09-16 16:59 | disposition home or self-care (01) ==
LOC: ERS 15:41 → 2SW 20:23
PROVIDERS: ADMIT Student in an Organized Health Care Education/Training Program; ATTEND Student in an Organized Health Care Education/Training Program
PROC: 0F798DZ Dilation of Common Bile Duct with Intraluminal Device, Via Natural or Artificial Opening Endoscopic (ICD-10-PCS; principal; 2018-09-14)
PROC: 0F778ZZ Dilation of Common Hepatic Duct, Via Natural or Artificial Opening Endoscopic (ICD-10-PCS; 2018-09-14)
DX: K80.50 Calculus of bile duct without cholangitis or cholecystitis without obstruction (principal); C64.9 Malignant neoplasm of unspecified kidney, except renal pelvis; C78.89 Secondary malignant neoplasm of other digestive organs; R17 Unspecified jaundice; E80.6 Other disorders of bilirubin metabolism; R74.0 Nonspecific elevation of levels of transaminase and lactic acid dehydrogenase [LDH]; I10 Essential (primary) hypertension; N40.0 Benign prostatic hyperplasia without lower urinary tract symptoms; I25.10 Atherosclerotic heart disease of native coronary artery without angina pectoris; L29.9 Pruritus, unspecified; Z88.8 Allergy status to other drugs, medicaments and biological substances; Z79.82 Long term (current) use of aspirin; Z79.899 Other long term (current) drug therapy; Z95.1 Presence of aortocoronary bypass graft; Z95.5 Presence of coronary angioplasty implant and graft
CPT/HCPCS: 43274; 43277; 74177; 74330; 80053 ×4; 82247; 82248; 83690 ×2; 85025 ×3; 96361 ×3; 96365; 96366; 99285; G0378 ×2; 36415; 96360; J1100; J2405; J2543; J2704; J3010; J3490; J7050; Q9961; Q9966

== ENCOUNTER → 2018-11-15 | Day surgery (SDC) | payer MEDICARE ==
[2018-11-14 13:07] VITALS: BMI 30.7
[~2018-11-15] MED LIST changes: +Fentanyl 100 MCG/2 ML VIAL ONE; +Glycopyrrolate 0.2 MG/ML 5 ML SYRINGE ONE; -ISOVUE-370 76%-LOCM 1 ML ONE; +Iothalamate Meglumine 60% 50 ML VIAL FS ONE; +Ketamine 50 MG/ML (10ML VIAL) ONE; +Levofloxacin 500 mg/D5W 100 ml Premix Bag ONE; +Lidocaine 1% PF 5 ML VIAL ONE; +Ondansetron PF 4 MG/2 ML Vial ONE; +PROPOFOL 200 MG/20 ML VIAL ONE; +Rocuronium Bromide 10 MG/ML (10ML VIAL) ONE; +ePHEDrine 50 MG/ML VIAL ONE
--- NOTE | 2018-11-15 13:02 | OP ---
DATE OF PROCEDURE: 11/15/2018 PREPROCEDURE DIAGNOSES: 1. History of metastatic renal cell carcinoma with biliary obstruction. 2. Status post endoscopic retrograde cholangiopancreatography with Wallstent placement in 2017 with good drainage up until August of this year when he presented with obstructive jaundice. 3. He had an endoscopic retrograde cholangiopancreatography at that stage that showed overgrowth of the stent distally and a plastic stent was placed through that. He is here today for removal of plastic stent and replacement of a metal Wallstent to keep the distal bile duct open. In the interim, he has been started on Opdivo. POSTPROCEDURE DIAGNOSES: 1. Tumor overgrowth of distal metallic Wallstent in the biliary tree. 2. Biliary debris with sludge of bile and small stones removed with a 9 mm balloon. 3. A 6 cm x 10 mm coated Wallstent was placed over the distal aspect of the previous stent extending out beyond the tumor overgrowth in the duodenum with good positioning and patency. RECOMMENDATIONS: Follow up in my office p.r.n. I have discussed with the patient's daughter, if he develop icterus, dark urine, or pruritis need to see me immediately. Otherwise, hopefully the Opdivo will have some effect in his tumor progression. He has regular followup with Oncology, will not schedule followup with myself at this time. ANESTHESIA: General endotracheal anesthesia. PROCEDURE IN DETAIL: After the patient was informed of the risks, benefits, and possible complications of endoscopy including perforation, reaction to medication, aspiration, and pancreatitis and that was explained to the daughter as well. Informed consent was obtained. The patient was brought to endoscopy suite, where he was intubated. He was placed in the prone position on fluoroscopy table. Furnace Charging Machine Operator film was obtained showing the previously noted stent in place with no evidence of waste formation. A balloon catheter, 9 to 12 mm balloon was advanced up in the biliary tree and a cholangiogram was obtained. There was some filling defect in the distal duct and this was swept easily and the balloon came through the area of tumor ingrowth easily and brought out a lot of stones and sludge. This was done several times. The duct was irrigated, more stones and sludge removed. Once the duct was clear with occlusion cholangiogram and the stent was clear from the debris, a guidewire was left in place. Exchange was made for the balloon and we placed a 6 cm x 10 mm coated Wallstent over the guidewire and positioned it over the distal aspect of the previous noted stent and extending over further out of the duodenum beyond the tumor ingrowth and this was deployed in good fashion with about 4 to 5 reocclusion. There was good biliary drainage. The scope was removed and the patient tolerated the procedure well with no complications. Fluoroscopic documentation was obtained. The patient was then extubated and brought to Recovery, will go home this afternoon. Job ID: [id number]
--- NOTE | 2018-11-15 14:31 | RAD ---
INTRAPROCEDURE FLUOROSCOPY: DATE: 11/15/18 HISTORY: ERCP. FINDINGS: Fluoroscopy was provided for Dr. Jacobsen. Two images demonstrate a stent in the distal common bile trae t. Within this stent is a second more tubular structure. Subsequent image demonstrates what appears t o be removal of this tubular structure. Contrast opacifies the common bile duct which has an overall normal caliber. Filling defect in the proximal portion of the common bile duct is presumed to be due to air. The possibility of a choledocholith cannot be completely excluded. Visualized intrahepatic bi liary system appears to be decompressed. IMPRESSION: Fluoroscopy as above. POS: [facility]
== END ==
LOC: SDC 08:11
PROVIDERS: ATTEND Internal Medicine Gastroenterology
PROC: 0FC98ZZ Extirpation of Matter from Common Bile Duct, Via Natural or Artificial Opening Endoscopic (ICD-10-PCS; principal; 2018-11-15)
PROC: 0F798DZ Dilation of Common Bile Duct with Intraluminal Device, Via Natural or Artificial Opening Endoscopic (ICD-10-PCS; 2018-11-15)
DX: C79.00 Secondary malignant neoplasm of unspecified kidney and renal pelvis (principal); K80.51 Calculus of bile duct without cholangitis or cholecystitis with obstruction; K83.8 Other specified diseases of biliary tract; E66.3 Overweight; Z68.30 Body mass index [BMI] 30.0-30.9, adult; Z79.899 Other long term (current) drug therapy; Z88.8 Allergy status to other drugs, medicaments and biological substances; Z95.1 Presence of aortocoronary bypass graft
CPT/HCPCS: 43264; 43274; 74330; C1874; J1956; J2001; J2405; J2704; J3010; J3490; Q9961

== ENCOUNTER 2019-10-11 09:02 | Outpatient (CLI) | payer MEDICARE ==
--- NOTE | 2019-10-11 10:11 | CT ---
CT ABDOMEN AND PELVIS WITH IV CONTRAST 10/11/2019 CLINICAL INFORMATION: Bile duct tumor. History of renal cancer post right nephrectomy. COMPARISON: 09/14/2018 and 08/14/2018 Technique: Multiple contiguous axial CT images are obtained through the abdomen and pelvis with IV contrast. Cor onal reformatted images are provided. FINDINGS: Lower Chest: Interval development of a pleural-based nodular density lateral aspect right middle lobe with associated linear densities. This could potentially represent pleural and parenchymal scarring. Small 6 mm pleural-based nodular density is also seen in the right lower lobe adjacent to t he major fissure. Mild scarring at the left lung base is again seen. Vessels: Vascular calcifications are again seen in the coronary arteries as well as involving the abd ominal aorta and iliac arteries. Abdomen: Portal vein:Patent Gallbladder: Surgically absent. A stent is present within the common duct. There has been interval im provement in the intra and extrahepatic biliary ductal dilatation when compared to the prior exams. Pneumobilia is now present primarily within the left hepatic lobe. Liver: No focal hepatic lesion is identified. Spleen: within normal limits. Pancreas: Again noted is what appears to be slight masslike prominence in the region of the body of t he pancreas with a small rounded 1.8 cm masslike focus seen within the head of the pancreas just anterior to the biliary stent. Area in the body the pancreas near the body tail junction is similar t o prior studies. The suggested small nodular increased parenchymal density in the pancreatic head may potentially represent normal pancreatic tissue; there was generalized heterogeneity in the region of the head of the pancreas on prior exam, but this does appear slightly less prominent. Adrenals: Left adrenal gland demonstrates mild thickening, but this is a stable finding. There is darwin dence of right adrenalectomy. Kidneys: Evidence of a right nephrectomy. Multiple left renal cysts and too small to characterize sub centimeter hypodense lesions are again seen in the left kidney. No enhancing left renal mass is identified. Bowel: Colonic diverticulosis. Loops of small bowel are normal in caliber. Appendix: The appendix is visualized and normal in caliber. Peritoneum: No ascites or free air; no fluid collection. Mesentery and Retroperitoneum: No enlarged mesenteric or retroperitoneal lymph nodes. Abdominal Wall: Atrophy of the rectus abdominis musculature with area of scarring in the adipose soft tissues right lower quadrant/upper pelvis. Pelvis: Reproductive Organs: Prostate gland is heterogeneous and slightly lobulated in appearance with prosta te calcifications. This does result in mass effect on the posterior inferior aspect of the urinary bladder. Similar finding was noted on the prior exam. Pelvis within normal limits. Bladder: Incompletely distended. Bones: Multilevel degenerative changes in the spine with bilateral hip osteoarthritis. No suspicious lytic or sclerotic osseous lesions are identified. Stable spondylolisthesis lumbosacral junction with grade 1 anterolisthesis of L5 on S1.. IMPRESSION: 1. Repositioning of the biliary stent with interval improvement in biliary ductal dilatation. Pneumob diane is now present. 2. Isodense-appearing mass in the body of the pancreas seen on prior exams with questionable isodense small mass in the head of the pancreas. 3. Postsurgical changes related to cholecystectomy, right adrenalectomy, and right nephrectomy. 4. Interval development of a pleural-based nodular density right middle lobe with associated linear d ensities. This could potentially represent pleural and parenchymal scarring. 5. Additional findings are as described above.
== END 2019-10-11 09:03 | disposition home or self-care (01) ==
LOC: SCSCT 09:02
PROVIDERS: ATTEND Internal Medicine Hematology & Oncology
DX: C64.1 Malignant neoplasm of right kidney, except renal pelvis (principal); K82.8 Other specified diseases of gallbladder; K83.8 Other specified diseases of biliary tract; K86.89 Other specified diseases of pancreas; R91.8 Other nonspecific abnormal finding of lung field; N28.1 Cyst of kidney, acquired; N28.9 Disorder of kidney and ureter, unspecified; E27.8 Other specified disorders of adrenal gland; K57.30 Diverticulosis of large intestine without perforation or abscess without bleeding; M16.0 Bilateral primary osteoarthritis of hip; M43.17 Spondylolisthesis, lumbosacral region; M47.819 Spondylosis without myelopathy or radiculopathy, site unspecified; N42.89 Other specified disorders of prostate; L90.5 Scar conditions and fibrosis of skin; K76.89 Other specified diseases of liver; I25.10 Atherosclerotic heart disease of native coronary artery without angina pectoris; I70.0 Atherosclerosis of aorta; Z90.49 Acquired absence of other specified parts of digestive tract; Z90.5 Acquired absence of kidney; Z96.89 Presence of other specified functional implants
CPT/HCPCS: 74177